=== PATIENT | male | born 1970 | race Caucasian/White ===

== ENCOUNTER 2022-09-14 17:14 | Emergency (ER) | payer SELFPAY ==
--- NOTE | ~2022-09-14 | XR_ITS ---
EXAMINATION: XR shoulder RT min 2V DATE: 09/14/2022 17:41 INDICATION: Posterior right shoulder pain post pulling injury TECHNIQUE: AP internally and externally rotated, AP oblique externally rotated and transscapular Y vi ews of the right shoulder were obtained. COMPARISON: None FINDINGS: Normal alignment. No fracture. Glenohumeral joint is normal. Acromioclavicular joint is normal. Bone island at the posterior right humeral head neck junction. Tiny calcific densities near the the middl e facet of the greater tuberosity cephalad aspect of the lesser tuberosity in locations suggestive of rotator cuff calcific tendinitis. Soft tissues are unremarkable. Visualized portion of the right carlos g are clear. IMPRESSION: 1. No acute osseous abnormality. 2. Tiny calcific densities along the lesser and greater tuberosity suggestive of rotator cuff calcifi c tendinitis. Reviewed, dictated and finalized at location A. IMPRESSION: 1. No acute osseous abnormality. 2. Tiny calcific densities along the lesser and greater tuberosity suggestive o f rotator cuff calcific tendinitis.
[2022-09-14 17:15] VITALS: BP 154/111; PULSE 93; RESP 20; TEMP 36.8; O2SAT 100
--- NOTE | 2022-09-14 17:53 | ED.UPPEXIN ---
HPI - Extremity Injury (Upper) General Chief Complaint: Extremity Injury, Upper Stated Complaint: R shoulder pain/injury Time Seen by Provider: 09/14/22 17:19 Source: patient Mode of arrival: ambulatory Limitations: no limitations History of Present Illness HPI narrative: this is a 52-year-old gentleman that presents with right shoulder injury after he was pulling lawnmower hand will to try to get it started and injured his right shoulder and mid scapular area on the right has limited range of motion secondary to pain no numbness or tingling. Has decreased range of motion with active and passive movements with some small area of inflammation and not located in the mid upper scapular region. complaint: injury to: right Onset (ago): hour(s) Other Extremity Injury: Right: shoulder ( tenderness with movement) Handedness: right Place: outdoors Severity: moderate Severity scale (1-10): 6 Relieving factors: immobilization Exacerbating factors: movement of extremity Related Data Home Medications Medication Instructions Recorded Confirmed levothyroxine 150 mcg PO DAILY 09/14/22 09/14/22 Allergies Allergy/AdvReac Type Severity Reaction Status Date / Time No Known Allergies Allergy Verified 09/14/22 17:50 Review of Systems Review of Systems: All systems reviewed & are unremarkable except as noted in HPI and below PMFSH Past Medical History Medical History Patient denies medical problems Exam Const: General: healthy appearing Nutritional Appearance: well nourished Orientation/consciousness: patient oriented x3 Limitations: no limitations Neck: Neck: normal visual inspection Chest: Chest palpation & inspection: normal inspection of the chest Resp: Effort & Inspection: normal respiratory effort Auscultation: clear to auscultation bilaterally Cardio: Rate: regular rate Rhythm: regular rhythm GI: GI Palp: Yes Soft to palpation Auscultation: normal bowel sounds Skin: General skin exam: normal color Wounds: wounds noted Extrem: Other: limited range of motion of right shoulder with active and passive movement secondary to injury with no numbness or tingling no neck pain. Psych: Mental Status: mental status grossly normal Affect: normal affect Course Course Emergency Course: Patient received IM Toradol 60mg which helped relieve his discomfort and x-ray reviewed which shows rotator cuff tendinitis with no acute osseous injuries. Vital Signs Vital signs: Vital Signs Temperature 36.8 C 09/14/22 17:15 Pulse Rate 93 09/14/22 17:15 Respiratory Rate 20 09/14/22 17:15 Blood Pressure 154/111 H 09/14/22 17:15 Pulse Oximetry 100 09/14/22 17:15 Oxygen Delivery Room Air 09/14/22 17:15 Temperature 36.8 C 09/14/22 17:15 Pulse Rate 93 09/14/22 17:15 Respiratory Rate 20 09/14/22 17:15 Blood Pressure 154/111 H 09/14/22 17:15 Pulse Oximetry 100 09/14/22 17:15 Oxygen Delivery Room Air 09/14/22 17:15 Critical Care Time Critical Care Time Critical Care Time: No Discharge Plan Discharge Clinical Impression: Tendinitis of right rotator cuff Patient Disposition: Home, Self-Care Condition: Stable Instructions: Antibiotic Form, Rotator Cuff Tendinitis (ED) Additional Instructions: take medicine as prescribed and follow-up with primary care physician within 1 week for further evaluation and treatment Prescriptions: New tramadol 50 mg tablet 50 mg PO Q6H PRN (Reason: pain) Qty: 20 0RF No Action levothyroxine 150 mcg PO DAILY Follow-up/Referrals: UNKNOWN,DOCTOR [Primary Care Provider] - Time of Disposition: 17:58
[2022-09-14] MEDS: KETOROLAC (*BKC) 60 MG/2 ML VIAL IM (17:58)
[2022-09-14 17:59] VITALS: BP 151/101; PULSE 91; RESP 20; O2SAT 97
== END 2022-09-14 18:03 | disposition home or self-care (01) ==
PROVIDERS: Emergency Provider Emergency Medicine
DX: M67.813 Other specified disorders of tendon, right shoulder (principal)
CPT/HCPCS: 73030; 96372; 99283; J1885